=== PATIENT | male | born 1960 | race Caucasian/White ===

== ENCOUNTER 2018-09-19 11:19 | Inpatient (IN) | payer OTHER ==
[~2018-09-19] VITALS: Ht 185.4 cm; Wt 90.9 kg
[2018-09-19] VITALS (7 sets, daily range): BP systolic 140–162; BP diastolic 83–107
[~2018-09-19 11:19] MED LIST: BENADRYL25 MG; OMEPRAZOLE; PROVENTIL; ZPAK PO
[2018-09-19 11:52] LABS: ABSOLUTE NEUTROPHILS 9.3 thou/uL (1.4-8.2); BASOPHILS 0.3 % (0.0-2.0); HEMATOCRIT 45.6 % (42.0-52.0); HEMOGLOBIN 15.5 gm/dL (14.0-18.0); LYMPHOCYTES 6.8 % (24.0-44.0); MCH 31.6 pg (26.0-34.0); MCV 92.9 fL (80.0-100.0); MONOCYTES 9.3 % (1.0-8.0); PLATELET COUNT 144 thou/uL (150-400); POLYS 83.6 % (36.0-66.0); RBC 4.91 mil/uL (4.50-6.00); RDW 13.5 % (10.5-14.5); WBC 11.1 thou/uL (4.0-11.0)
[2018-09-19 11:54] LABS: CALCIUM 9.5 mg/dL (8.5-10.1); POTASSIUM 3.2 mmol/L (3.5-5.1)
[2018-09-19 12:00] LABS: ALBUMIN 4.3 g/dL (3.4-5.0); TOTAL BILIRUBIN 1.9 mg/dL (<0.1-1.0); TOTAL PROTEIN 9.2 g/dL (6.4-8.2)
[2018-09-19 12:05] LABS: APTT 27.1 Seconds (24.5-32.8); INR 1.1
[2018-09-19] MEDS ORDERED: BENADRYL25 MG PO (13:57)
[2018-09-19] MEDS ORDERED: NEXIUM40 MG PO (13:57)
[2018-09-19] MEDS ORDERED: IBUPROFEN 200200 M1 PO (13:58)
[2018-09-19 15:19] LABS: CHOLESTEROL 199 mg/dL (<200); HDL CHOLESTEROL 121 mg/dL (>40); LDL CHOLESTEROL 67 mg/dL (<100); PHOSPHORUS 1.4 mg/dL (2.5-4.9); TC:HDL 1.6 Ratio (Not establshd); TRIGLYCERIDE 56 mg/dL (<150); VLDL 11 mg/dL (<40)
--- NOTE | 2018-09-19 16:07 | EKG ---
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 : 1960 Requested By: Hang Ballard Order Number: [id number] MD: Donny Doe Measurements Intervals Nimitz Rate: 98 P: 20 MI: 143 QRS: 61 QRSD: 93 T: 33 QT: 354 QTc: 453 Interpretive Statements Sinus rhythm No previous ECG available for comparison Electronically Signed On 09-19-2018 16:06:45 CDT by Donny Doe [email or web address] ��������������������������������������������� <ELECTRONICALLY SIGNED> ���������������������������������������� By: Donny Doe MD ��������������������������������������������� 09/19/18 1606 1140 1140 Donny Doe MD /ADRIANA
[2018-09-19 18:14] LABS: FOLIC ACID 19.2 ng/mL (8.6-58.9)
[2018-09-20 00:30] LABS: URINE BILIRUBIN 1+ (Negative); URINE BLOOD TRACE (Negative); URINE CLARITY CLEAR; URINE COLOR YELLOW; URINE GLUCOSE-RANDOM* NEGATIVE (Negative); URINE KETONES TRACE (Negative); URINE LEUKOCYTES-REFLEX NEGATIVE (Negative); URINE NITRITE-REFLEX NEGATIVE (Negative); URINE PROTEIN (DIPSTICK) NEGATIVE (Negative)
[2018-09-20 00:34] LABS: AMP/METHAMP Negative (Negative); BARBITURATES Negative (Negative); BENZODIAZEPINES Negative (Negative); COCAINE Negative (Negative); METHADONE Negative (Negative); OPIATES Negative (Negative); PCP Negative (Negative)
[2018-09-20 01:10] LABS: GLYCOHEMOGLOBIN (HGB A1C) 5.5 % (4.8-5.6)
[2018-09-20 03:01] VITALS: BP 144/89
[2018-09-20 04:51] VITALS: BP 160/87
[2018-09-20 08:15] VITALS: BP 172/92
[2018-09-20 09:01] LABS: CALCIUM 8.3 mg/dL (8.5-10.1); CREATININE 0.7 mg/dL (0.7-1.3); MAGNESIUM 2.1 mg/dL (1.8-2.4)
[2018-09-20 09:11] LABS: HAV IgM AB (ANTI-HAV IgM) Negative (Negative); HEPATITIS B SURFACE AG Negative (Negative); HEPATITIS C VIRUS AB <0.1 (0.0-0.9)
[2018-09-20 16:25] VITALS: BP 137/80
[2018-09-20 20:37] VITALS: BP 153/91
[2018-09-21 04:55] LABS: HEMATOCRIT 40.8 % (42.0-52.0); HEMOGLOBIN 13.9 gm/dL (14.0-18.0); MCH 31.8 pg (26.0-34.0); MCV 93.5 fL (80.0-100.0); RBC 4.36 mil/uL (4.50-6.00); RDW 13.3 % (10.5-14.5); WBC 8.2 thou/uL (4.0-11.0)
[2018-09-21 05:03] LABS: ALBUMIN 3.4 g/dL (3.4-5.0); CALCIUM 8.9 mg/dL (8.5-10.1); CREATININE 0.7 mg/dL (0.7-1.3); PHOSPHORUS 2.6 mg/dL (2.5-4.9); POTASSIUM 3.5 mmol/L (3.5-5.1); TOTAL PROTEIN 7.8 g/dL (6.4-8.2)
[2018-09-21 06:38] VITALS: BP 162/95
[2018-09-21 08:35] VITALS: BP 179/98
[2018-09-21] MEDS ORDERED: PEPCID20 MG PO ×2 (11:40→11:58)
[2018-09-21] MEDS ORDERED: FLAGYL500 M1 PO (11:40)
[2018-09-21] MEDS ORDERED: CIPROFLOXACIN500 M1 PO ×2 (11:40→11:58)
[2018-09-21 11:58] VITALS: BP 177/93
[2018-09-21 12:13] VITALS: BP 177/93
--- NOTE | 2018-09-21 16:06 | PATH ---
[facility] [address] [place] [address] PATHOLOGY RPT PROCEDURE Name: JOS ORTEGA Desmond Room #: 214-P [facility] IN M.R.#: [id number] ������������������ Admission: 09/19/18 ������������������ Date of : 62 Discharge: 09/21/18 Report #: [id number] Path Case #: [id number] [facility] Accession Number: [id number] . 01 Material submitted: . sigmoid colon - SIGMOID COLON SEGMENTAL COLITIS 33CM-20CM . 01 Clinical history: . 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 02 Diagnosis: Large intestine mucosa, segmental colitis 33 cm to 20 cm sigmoid colon, endoscopic biopsy: - Compatible with ischemic colitis (please see comment). - Negative for dysplasia or malignancy. (IUV:jac; 09/21/2018) MBR/09/21/2018 . 02 Comment: Examination shows regenerative surface epithelial atypia, ulceration, lamina propria fibrosis, as well as loss of crypts. Fibrin filled vessels are not identified. Overall, findings are compatible with ischemic colitis. Please note pseudomembranous colitis is in the differential as well. Clinical correlation is suggested. There is no dysplasia or malignancy present. (IUV:paper handler; 09/21/2018) . 02 Electronically signed: . Myriam Michaud MD, Pathologist NPI- [id number] . 01 Gross description: . Received in formalin labeled "Jos Ortega, BX segmental colitis, sigmoid colon," and additionally labeled on the requisition as "33 cm to 20 cm," are 3 segments of vázquez soft tissue measuring 0.9 x 0.3 x 0.2 cm in aggregate dimensions and measuring 0.3 cm each maximum dimension. The specimen is submitted entirely in cassette A1. (TSD; 09/20/2018) TOB/TOB . 02 Pathologist provided ICD-10: K55.9 . 02 CPT . [id number] [place] [address] PATHOLOGY RPT PROCEDURE Name: JOS ORTEGA A Room #: 214-P [facility] IN M.R.#: [id number] ������������������ Admission: 09/19/18 ������������������ Date of : 62 Discharge: 09/21/18 Report #: [id number] Path Case #: [id number] Specimen Comment: A courtesy copy of this report has been sent to Specimen Comment: [phone], . Specimen Comment: Report sent to / DR GUIDRY Performed at: [address], [place], [place] [id number] MD Andre Remy MD Phone: [phone] Performed at: [address] [id number] MD Myriam Michaud MD Phone: [phone]
== END 2018-09-21 15:59 | disposition home or self-care (01) | DRG 385 ==
LOC: ER 11:19 → EROBS 12:32 → 2N 12:32 → ENTRNSPT 09-21 15:52 → EDTRNSPTSTS 09-21 15:55 → 2N 09-21 15:59
PROVIDERS: Emergency Medicine; Nurse Practitioner; ADMIT Internal Medicine
PROC: 0DBN8ZX Excision of Sigmoid Colon, Via Natural or Artificial Opening Endoscopic, Diagnostic (ICD-10-PCS; principal; 2018-09-20)
PROC: 0DJ08ZZ Inspection of Upper Intestinal Tract, Via Natural or Artificial Opening Endoscopic (ICD-10-PCS; principal; 2018-09-20)
DX: K50.10 Crohn's disease of large intestine without complications (principal); K25.4 Chronic or unspecified gastric ulcer with hemorrhage; I85.01 Esophageal varices with bleeding; K55.9 Vascular disorder of intestine, unspecified; E86.0 Dehydration; E80.6 Other disorders of bilirubin metabolism; K21.9 Gastro-esophageal reflux disease without esophagitis; E87.6 Hypokalemia; J45.909 Unspecified asthma, uncomplicated; E83.39 Other disorders of phosphorus metabolism; K22.70 Barrett's esophagus without dysplasia; K76.0 Fatty (change of) liver, not elsewhere classified; K44.9 Diaphragmatic hernia without obstruction or gangrene; Z88.0 Allergy status to penicillin; Z88.2 Allergy status to sulfonamides; Z88.8 Allergy status to other drugs, medicaments and biological substances; Z90.49 Acquired absence of other specified parts of digestive tract; Z79.899 Other long term (current) drug therapy; Z87.891 Personal history of nicotine dependence
CPT/HCPCS: 10081; 62110; 62900; 70005